=== PATIENT | female | born 1995 | race African-American/Black ===

== ENCOUNTER 2017-04-07 11:14 | Emergency (ER) | payer OTHER ==
[~2017-04-07] VITALS: Ht 162.6 cm; Wt 86.2 kg
[2017-04-07] MEDS ORDERED: NORCO 5-325 TA1 EACH PO (12:44)
[2017-04-07 12:59] VITALS: BP 113/71
== END 2017-04-07 13:00 | disposition home or self-care (01) ==
LOC: ER 11:14
DX: R51 Headache (principal); F17.210 Nicotine dependence, cigarettes, uncomplicated; F10.99 Alcohol use, unspecified with unspecified alcohol-induced disorder; V89.2XXA Person injured in unspecified motor-vehicle accident, traffic, initial encounter; Y93.89 Activity, other specified; Y92.89 Other specified places as the place of occurrence of the external cause; Y99.8 Other external cause status